=== PATIENT | female | born 1935 | race Caucasian/White ===

== ENCOUNTER 2023-01-29 16:07 | Inpatient (IN) | payer MEDICARE, OTHER ==
[~2023-01-29] VITALS: Ht 165.1 cm; Wt 65.0 kg
[2023-01-29 17:24] LABS: BASOPHILS % (AUTO) 0.2 % (0-1); EOSINOPHILS % (AUTO) 0 % (0-6); HEMATOCRIT 37.2 % (35.0-45.0); HEMOGLOBIN 12.7 g/dl (12.0-16.0); LYMPHOCYTES # (AUTO) 0.9 X10'3 (1.1-4.8); LYMPHOCYTES % (AUTO) 6.9 % (21-51); MEAN PLATELET VOLUME 8.8 FL (7.4-10.4); MONOCYTES # (AUTO) 1.2 X10'3 (0-0.9); MONOCYTES % (AUTO) 9.1 % (2-12); NEUTROPHILS # (AUTO) 10.8 X10'3 (1.8-7.7); NEUTROPHILS % (AUTO) 83.8 % (42-75); PLATELET COUNT 208 X10'3 (140-440); RED BLOOD COUNT 4.09 X10'6 (4.20-5.60); RED CELL DISTRIBUTION WIDTH 13.9 % (11.5-14.5); WHITE BLOOD COUNT 12.8 X10'3 (4.5-11.0)
[2023-01-29 17:37] LABS: ALANINE AMINOTRANSFERASE 22 U/L (12-78); ALBUMIN 3.3 G/DL (3.4-5.0); ALBUMIN/GLOBULIN RATIO 0.8 (1.1-1.5); ALKALINE PHOSPHATASE 76 IU/L (46-116); ANION GAP 10 (8-16); ASPARTATE AMINO TRANSFERASE 44 U/L (10-37); BILIRUBIN,TOTAL 1.2 MG/DL (0.1-1.0); BLOOD UREA NITROGEN 24 MG/DL (7-18); BUN/CREATININE RATIO 14.1 (10.0-20.0); CALCIUM 9.5 MG/DL (8.5-10.1); CHLORIDE 91 MMOL/L (99-107); GLUCOSE 124 MG/DL (70-104); LIPASE 14 U/L (16-77); POTASSIUM 3.4 MMOL/L (3.5-5.1); SODIUM 127 MMOL/L (135-145); TOTAL CARBON DIOXIDE 25.9 MMOL/L (24-32); TOTAL PROTEIN 7.3 G/DL (6.4-8.2); eCRCL 21 ML/MIN; eGFR 28 ML/MIN
[2023-01-29 18:22] LABS: PLATELET ESTIMATE NORMAL; TOTAL CELLS COUNTED 100
--- NOTE | 2023-01-29 18:25 | NUR ---
THIS RN CHARTED OFFICIAL ASSESSMENT FOR LEARNING PURPOSES WITH JULEE KRUGER ORIENTEE.
[2023-01-29] MEDS ORDERED: diazepam inj 5 MG/ML inj. IV STA (19:06)
[2023-01-29] MEDS ORDERED: aspirin 325mg tablet PO ONE (19:20)
--- NOTE | 2023-01-29 19:30 | NUR ---
PER PT DAUGHTER FRANCHESKA FARIAS PT HAS HEARING AID TO RIGHT EAR ONLY AND IT IS AT PT HOME/NOT ON PT.
--- NOTE | 2023-01-29 19:30 | NUR ---
THIS RN OBTAINED PT MEDICAL HISTORY WITH PT DAUGHTER FRANCHESKA FARIAS [phone]/APPROVED BY PT/CONTACT # GIVEN TO REGISTRATION NEXT OF KIN.
--- NOTE | 2023-01-29 19:30 | NUR ---
CHARGE INFORMED PT NEEDS HEP DRIP
[2023-01-29] MEDS ORDERED: ondansetron/PF 4mg/2ml inj IV PRN (20:00)
[2023-01-29] MEDS ORDERED: potassium Cl 40MEQ/1/2NS 520ml 520 ML IV PRN (20:00)
[2023-01-29] MEDS: K and/or MAG REPLACEMENT MC SCH (20:00)
[2023-01-29] MEDS ORDERED: potassium Cl 20 mEq SR tablet PO PRN (20:00)
[2023-01-29] MEDS ORDERED: magnesium Cl slow-release 64mg tablet PO PRN (20:00)
[2023-01-29] MEDS: docusate sod 100mg capsule PO SCH (20:00)
[2023-01-29] MEDS ORDERED: magnesium 2GM in 50ml NS 50 ML IV PRN (20:00)
[2023-01-29] MEDS ORDERED: acetaminophen 325mg tablet PO PRN (20:00)
[2023-01-29] MEDS ORDERED: mag hydrox/Alum hydrox/simeth 30ml oral suspension PO PRN (20:00)
[2023-01-29] MEDS ORDERED: magnesium hydroxide 30ml (MOM) UD suspension PO PRN (20:00)
[2023-01-29] MEDS ORDERED: PERFLUTREN PROTEIN-A MICROSPHR (Optison) 0.22 MG/ML 3ML VIAL IV ONE (20:00)
[2023-01-29] MEDS ORDERED: magnesium 4gm in 100ml NS 100 ML IV PRN (20:00)
[2023-01-29] MEDS ORDERED: heparin, porcine 5000 units/ml vial SQ SCH (20:00)
[2023-01-29] MEDS: potassium Cl 20 mEq SR tablet PO PRN (20:28)
[2023-01-29 20:33] LABS: APTT 31 SECONDS (22-32); PROTHROMBIN TIME 10.7 SECONDS (9.0-12.0)
[2023-01-29] MEDS: heparin 10,000 units/1 ML INJ IV PRN (21:52)
[2023-01-29] MEDS: heparin 25,000 UNIT/250ml bag 250 ML IV PRN (21:55)
--- NOTE | 2023-01-29 22:04 | NUR ---
MED "OPTISON" NOT GIVEN IN ER
--- NOTE | 2023-01-29 22:46 | NUR ---
PT PLACED ONTO IN-PATIENT BED
[2023-01-29 22:57] LABS: HEMOGLOBIN 9.5 g/dl (12.0-16.0); RED BLOOD COUNT 3.05 X10'6 (4.20-5.60); WHITE BLOOD COUNT 11.1 X10'3 (4.5-11.0)
[2023-01-29 22:58] LABS: BASOPHILS % (AUTO) 0.1 % (0-1); EOSINOPHILS % (AUTO) 0.1 % (0-6); HEMATOCRIT 27.8 % (35.0-45.0); MAGNESIUM 2.2 MG/DL (1.5-2.4); MEAN CORPUSCULAR HEMOGLOBIN 31.1 PG (27.0-31.0); MEAN CORPUSCULAR VOLUME 91.4 FL (78-98); MEAN PLATELET VOLUME 9.2 FL (7.4-10.4); MONOCYTES # (AUTO) 1.1 X10'3 (0-0.9); MONOCYTES % (AUTO) 9.9 % (2-12); NEUTROPHILS % (AUTO) 80.9 % (42-75); PLATELET COUNT 146 X10'3 (140-440); POTASSIUM 3.1 MMOL/L (3.5-5.1)
[2023-01-30 01:41] LABS: BILIRUBIN,URINE NEGATIVE (Neg); CLARITY,URINE CLOUDY (Clear); COLOR,URINE YELLOW (Yellow); GLUCOSE, URINE NEGATIVE (Neg); KETONES,URINE NEGATIVE (Neg); LEUKOCYTE ESTERASE ,URINE LARGE (Neg); NITRITES, URINE POSITIVE (Neg); OCCULT BLOOD,URINE MODERATE (Neg); PROTEIN,URINE 30 mg/dl (Neg); UROBILINOGEN,URINE 0.2 E.U/dL (0.2-1.0)
[2023-01-30 01:42] LABS: UA COLLECTION TYPE STRAIGHT CATH
[2023-01-30 01:51] LABS: BACTERIA,URINE 4+ /HPF (Neg); SQUAMOUS EPITHELIAL CELL,UR FEW /LPF (FEW); TRANSITIONAL EPI CELLS,URINE FEW /HPF; WBC,URINE TNTC /HPF (0-4)
[2023-01-30 01:53] LABS: MUCUS STRANDS MANY /LPF (Neg)
[2023-01-30 01:54] LABS: WBC CLUMPS,URINE MODERATE /HPF (NEGATIVE)
[2023-01-30 04:27] LABS: ALANINE AMINOTRANSFERASE 18 U/L (12-78); ALBUMIN 2.7 G/DL (3.4-5.0); ALBUMIN/GLOBULIN RATIO 0.9 (1.1-1.5); ALKALINE PHOSPHATASE 65 IU/L (46-116); ANION GAP 9 (8-16); ASPARTATE AMINO TRANSFERASE 35 U/L (10-37); BILIRUBIN,TOTAL 1.1 MG/DL (0.1-1.0); BLOOD UREA NITROGEN 26 MG/DL (7-18); BUN/CREATININE RATIO 16.1 (10.0-20.0); CALCIUM 8.8 MG/DL (8.5-10.1); CHLORIDE 93 MMOL/L (99-107); CREATININE 1.61 MG/DL (0.40-0.90); GLUCOSE 136 MG/DL (70-104); MAGNESIUM 2.1 MG/DL (1.5-2.4); POTASSIUM 3.1 MMOL/L (3.5-5.1); SODIUM 127 MMOL/L (135-145); TOTAL CARBON DIOXIDE 24.7 MMOL/L (24-32); TOTAL PROTEIN 5.8 G/DL (6.4-8.2); eCRCL 22 ML/MIN; eGFR 30 ML/MIN
[2023-01-30 04:46] LABS: APTT 124 SECONDS (22-32)
[2023-01-30] MEDS: CefTRIAXone/D5W-Rocephin 1gm 50 ML IV SCH (04:53)
--- NOTE | 2023-01-30 06:49 | NUR ---
ASSUMED PT CARE. PT RESTING IN NO APPARENT DISTRESS. HEPARIN DRIP IS PAUSED. AWAITING PTT RESULTS.
--- NOTE | 2023-01-30 06:55 | NUR ---
BLOOD DRAWN AND SENT TO LAB
--- NOTE | 2023-01-30 07:41 | NUR ---
lab called regarding PTT stat order. Blue top already drawn prior to order placed. Lab states they will run it.
--- NOTE | 2023-01-30 07:55 | NUR ---
PT C/O BACK PAIN AND UNABLE TO LAY STILL FOR THE ECHO. HOSPITALIST CALLED AND VERBAL ORDER FOR NORCO RECEIVED.
[2023-01-30] MEDS: docusate sod 100mg capsule PO SCH ×2 (08:00→19:16)
--- NOTE | 2023-01-30 08:28 | NUR ---
PT C/O OF BLADDER PAIN AND SPASMS, BLADDER SCAN STATES THERE IS 330ML IN BLADDER. PT IS UNABLE TO URINATE. HOSPITALIST CALLED TO INFORM.
[2023-01-30] MEDS: aspirin 81mg, enteric-coated 1 TAB TABLET.DR PO SCH (09:00)
[2023-01-30] MEDS: carVEDilol 3.125mg tablet PO SCH ×2 (09:00→19:13)
[2023-01-30] MEDS: diazepam 5mg tablet PO PRN ×2 (09:00→19:13)
[2023-01-30] MEDS: atorvastatin 10mg tablet PO SCH (09:00)
[2023-01-30] MEDS: normal saline 1000ml 1,000 ML IV SCH (09:00)
--- NOTE | 2023-01-30 09:30 | NUR ---
pt incontinent stool. pt cleaned and rachel initiated.
[2023-01-30 10:11] LABS: HEMOGLOBIN 12.3 g/dl (12.0-16.0); LYMPHOCYTES # (AUTO) 0.4 X10'3 (1.1-4.8); RED BLOOD COUNT 3.96 X10'6 (4.20-5.60); WHITE BLOOD COUNT 11.8 X10'3 (4.5-11.0)
[2023-01-30 10:22] LABS: APTT 32 SECONDS (22-32)
[2023-01-30 10:25] LABS: BASOPHILS # (AUTO) 0.1 X10'3 (0-0.2); BASOPHILS % (AUTO) 0.8 % (0-1); EOSINOPHILS % (AUTO) 0 % (0-6); HEMATOCRIT 36.3 % (35.0-45.0); LYMPHOCYTES % (AUTO) 3.8 % (21-51); MEAN CORPUSCULAR HEMOGLOBIN 31.2 PG (27.0-31.0); MEAN CORPUSCULAR VOLUME 91.6 FL (78-98); MEAN PLATELET VOLUME 9.1 FL (7.4-10.4); MONOCYTES # (AUTO) 0.7 X10'3 (0-0.9); MONOCYTES % (AUTO) 5.8 % (2-12); NEUTROPHILS # (AUTO) 10.6 X10'3 (1.8-7.7); NEUTROPHILS % (AUTO) 89.6 % (42-75); PLATELET COUNT 169 X10'3 (140-440); RED CELL DISTRIBUTION WIDTH 14.1 % (11.5-14.5)
[2023-01-30] MEDS: K and/or MAG REPLACEMENT MC SCH ×2 (10:40→20:00)
[2023-01-30] MEDS: potassium Cl 20 mEq SR tablet PO PRN ×2 (10:57→16:36)
[2023-01-30] MEDS: heparin 10,000 units/1 ML INJ IV PRN (10:59)
--- NOTE | 2023-01-30 12:19 | NUR ---
Notified hospitalist of cardiac rhythm, pt in and out of trigeminy per Kayla KRUGER.
[2023-01-30] MEDS: HYDROcodone/acetaminophen 5mg/325mg tablet PO PRN (14:36)
--- NOTE | 2023-01-30 15:05 | NUR ---
pt medicated with prn meds for 9/10 kidney pain. pt also has a fever. Hospitalist rachna.
--- NOTE | 2023-01-30 15:52 | NUR ---
PT RESTING, STATES HER PAIN HAS IMPROVED.
[2023-01-30] MEDS ORDERED: normal saline 500ml IV soln 500 ML IV ONE (16:30)
--- NOTE | 2023-01-30 16:47 | NUR ---
hospitalist informed of trending low bp's, verbal order for a 500 ml NS bolus received and started.
--- NOTE | 2023-01-30 17:14 | NUR ---
LAB AT BEDSIDE
[2023-01-30 17:26] LABS: BASOPHILS % (AUTO) 0.3 % (0-1); EOSINOPHILS % (AUTO) 0 % (0-6); HEMATOCRIT 31.1 % (35.0-45.0); HEMOGLOBIN 10.5 g/dl (12.0-16.0); LYMPHOCYTES # (AUTO) 0.9 X10'3 (1.1-4.8); LYMPHOCYTES % (AUTO) 7.2 % (21-51); MEAN CORPUSCULAR HEMOGLOBIN 30.8 PG (27.0-31.0); MEAN CORPUSCULAR HGB CONC 33.7 g/dL (33.0-36.5); MEAN CORPUSCULAR VOLUME 91.4 FL (78-98); MEAN PLATELET VOLUME 8.9 FL (7.4-10.4); MONOCYTES # (AUTO) 1.3 X10'3 (0-0.9); MONOCYTES % (AUTO) 10.7 % (2-12); NEUTROPHILS # (AUTO) 10.2 X10'3 (1.8-7.7); NEUTROPHILS % (AUTO) 81.8 % (42-75); PLATELET COUNT 160 X10'3 (140-440); RED CELL DISTRIBUTION WIDTH 13.8 % (11.5-14.5); WHITE BLOOD COUNT 12.5 X10'3 (4.5-11.0)
[2023-01-30] MEDS ORDERED: LISI1TAB53 PO (17:38)
[2023-01-30] MEDS ORDERED: MECL-226 PO (17:38)
[2023-01-30] MEDS ORDERED: LISI20TA28 PO (17:38)
[2023-01-30] MEDS ORDERED: DIAZ5TAB4 PO (17:38)
[2023-01-30] MEDS ORDERED: ACET-1008 PO (17:38)
[2023-01-30] MEDS ORDERED: MAGN400C PO (17:38)
[2023-01-30 17:45] LABS: ALANINE AMINOTRANSFERASE 17 U/L (12-78); ALBUMIN 2.3 G/DL (3.4-5.0); ALBUMIN/GLOBULIN RATIO 0.7 (1.1-1.5); ALKALINE PHOSPHATASE 60 IU/L (46-116); ANION GAP 8 (8-16); ASPARTATE AMINO TRANSFERASE 23 U/L (10-37); BILIRUBIN,TOTAL 0.7 MG/DL (0.1-1.0); BLOOD UREA NITROGEN 24 MG/DL (7-18); BUN/CREATININE RATIO 16.4 (10.0-20.0); CALCIUM 8.3 MG/DL (8.5-10.1); CHLORIDE 98 MMOL/L (99-107); CREATININE 1.46 MG/DL (0.40-0.90); GLUCOSE 120 MG/DL (70-104); POTASSIUM 3.5 MMOL/L (3.5-5.1); SODIUM 130 MMOL/L (135-145); TOTAL CARBON DIOXIDE 24.3 MMOL/L (24-32); TOTAL PROTEIN 5.6 G/DL (6.4-8.2); eCRCL 24 ML/MIN; eGFR 34 ML/MIN
--- NOTE | 2023-01-30 17:54 | NUR ---
lab called [id number], informed nurse Angelica
--- NOTE | 2023-01-30 21:57 | NUR ---
pt resting , sleeping no visual signs of discompfort nor distress. equal rise and fall of chest while breathing.
[2023-01-31] VITALS (14 sets, daily range): BP systolic 100–158; BP diastolic 45–84; PULSE 58–95; RESP 11–17; TEMP 97.5–98.1; O2SAT 92–96
--- NOTE | 2023-01-31 01:09 | NUR ---
0005 ptt =54 in range no med change needed
[2023-01-31] MEDS: HYDROcodone/acetaminophen 5mg/325mg tablet PO PRN ×3 (03:35→20:33)
[2023-01-31] MEDS: diazepam 5mg tablet PO PRN (03:35)
--- NOTE | 2023-01-31 04:35 | NUR ---
pt resting , sleeping no visual signs of discompfort nor distress. equal rise and fall of chest while breathing.
[2023-01-31] MEDS: normal saline 1000ml 1,000 ML IV SCH (04:37)
[2023-01-31] MEDS: K and/or MAG REPLACEMENT MC SCH ×2 (06:55→19:09)
--- NOTE | 2023-01-31 07:14 | NUR ---
Report called to SASKIA Waters on PCU
[2023-01-31 08:39] LABS: BASOPHILS % (AUTO) 0.2 % (0-1); EOSINOPHILS % (AUTO) 0.1 % (0-6); HEMATOCRIT 31.9 % (35.0-45.0); HEMOGLOBIN 10.7 g/dl (12.0-16.0); LYMPHOCYTES # (AUTO) 0.7 X10'3 (1.1-4.8); LYMPHOCYTES % (AUTO) 6.7 % (21-51); MEAN CORPUSCULAR HGB CONC 33.6 g/dL (33.0-36.5); MEAN CORPUSCULAR VOLUME 92.1 FL (78-98); MEAN PLATELET VOLUME 9.4 FL (7.4-10.4); MONOCYTES # (AUTO) 0.9 X10'3 (0-0.9); NEUTROPHILS # (AUTO) 8.6 X10'3 (1.8-7.7); PLATELET COUNT 170 X10'3 (140-440); RED BLOOD COUNT 3.46 X10'6 (4.20-5.60); RED CELL DISTRIBUTION WIDTH 14.1 % (11.5-14.5); WHITE BLOOD COUNT 10.2 X10'3 (4.5-11.0)
[2023-01-31 09:18] LABS: % IRON SATURATION 8 % (11-46); IRON 11 UG/DL (49-151); TOTAL IRON BINDING CAPACITY 146 UG/DL (259-388)
[2023-01-31 09:22] LABS: ALANINE AMINOTRANSFERASE 18 U/L (12-78); ALBUMIN 2.2 G/DL (3.4-5.0); ALBUMIN/GLOBULIN RATIO 0.6 (1.1-1.5); ALKALINE PHOSPHATASE 84 IU/L (46-116); ANION GAP 7 (8-16); ASPARTATE AMINO TRANSFERASE 21 U/L (10-37); BILIRUBIN,TOTAL 0.6 MG/DL (0.1-1.0); BLOOD UREA NITROGEN 26 MG/DL (7-18); BUN/CREATININE RATIO 19.7 (10.0-20.0); CALCIUM 8.2 MG/DL (8.5-10.1); CHLORIDE 99 MMOL/L (99-107); CREATININE 1.32 MG/DL (0.40-0.90); FERRITIN 321 NG/ML (8-252); GLUCOSE 98 MG/DL (70-104); MAGNESIUM 2.2 MG/DL (1.5-2.4); POTASSIUM 3.8 MMOL/L (3.5-5.1); SODIUM 131 MMOL/L (135-145); TOTAL CARBON DIOXIDE 24.8 MMOL/L (24-32); TOTAL PROTEIN 5.7 G/DL (6.4-8.2); eCRCL 27 ML/MIN; eGFR 38 ML/MIN
[2023-01-31] MEDS: atorvastatin 10mg tablet PO SCH ×2 (09:48→21:11)
[2023-01-31] MEDS: docusate sod 100mg capsule PO SCH ×2 (09:48→20:18)
[2023-01-31] MEDS: carVEDilol 3.125mg tablet PO SCH (09:48)
[2023-01-31] MEDS: aspirin 81mg, enteric-coated 1 TAB TABLET.DR PO SCH (09:48)
[2023-01-31] MEDS: CefTRIAXone/D5W-Rocephin 1gm 50 ML IV SCH (13:05)
[2023-01-31] MEDS: heparin 25,000 UNIT/250ml bag 250 ML IV PRN (13:15)
[2023-01-31] MEDS: heparin 10,000 units/1 ML INJ IV PRN (13:17)
[2023-01-31] MEDS: traMADol 50MG tablet PO PRN (14:39)
[2023-01-31] MEDS ORDERED: verapamil 2.5 mg/ml inj IV ONE (16:26)
[2023-01-31] MEDS ORDERED: fentaNYL/PF 50MCG/1 ML 2ML syringe ONE (16:26)
[2023-01-31] MEDS ORDERED: heparin 1,000unit/ml 10ml vial 10 ML ONE (16:26)
[2023-01-31] MEDS ORDERED: LIDOcaine 1% (10mg/ml) 2ml vial ONE (16:26)
[2023-01-31] MEDS ORDERED: midazolam 1 mg/ML 2ml injection ONE (16:26)
[2023-01-31] MEDS ORDERED: iohexol 350MG/ML 100ml bottle IV ONE ×2 (16:26→17:24)
[2023-01-31] MEDS ORDERED: iohexol 350 MG/ML 50ML vial IV ONE (16:26)
[2023-01-31] MEDS ORDERED: nitroGLYCERIN 500mcg/5mL D5W 5 ML IV ONE ×2 (16:29→17:18)
[2023-01-31] MEDS ORDERED: acetaminophen 325mg tablet PO PRN (18:55)
[2023-01-31] MEDS ORDERED: diazepam 5mg tablet PO PRN (18:55)
[2023-01-31] MEDS: sodium bicarbonate 1meq/ml inj 150 ML in dextrose 5%-water 1,000 ML IV SCH (18:58)
[2023-01-31] MEDS: carvedilol 6.25mg tablet PO SCH (20:19)
[2023-01-31] MEDS: acetylcysteine 200 MG/ml 4ml vial PO SCH ×2 (20:19→20:35)
[2023-01-31] MEDS: lisinopril 20mg tablet PO SCH (21:10)
[2023-01-31] MEDS: magnesium oxide 400mg tablet PO SCH (21:10)
--- NOTE | 2023-01-31 23:17 | NUR ---
MD Perez notified by telephone that patient had a blood pressure of 94/42 with a heart rate of 71 and was asymptomatic. No new orders.
[2023-02-01] VITALS (7 sets, daily range): BP systolic 100–135; BP diastolic 44–77; PULSE 67–79; RESP 11–16; TEMP 97.4–99.7; O2SAT 91–94
[2023-02-01] MEDS: normal saline 1000ml 1,000 ML IV SCH ×2 (00:12→14:31)
[2023-02-01 01:53] LABS: BASOPHILS % (AUTO) 0.2 % (0-1); EOSINOPHILS # (AUTO) 0.1 X10'3 (0-0.9); EOSINOPHILS % (AUTO) 0.8 % (0-6); HEMATOCRIT 28.3 % (35.0-45.0); HEMOGLOBIN 9.9 g/dl (12.0-16.0); LYMPHOCYTES # (AUTO) 1.1 X10'3 (1.1-4.8); MEAN CORPUSCULAR HEMOGLOBIN 31.6 PG (27.0-31.0); MEAN CORPUSCULAR VOLUME 90.2 FL (78-98); MONOCYTES # (AUTO) 1.2 X10'3 (0-0.9); NEUTROPHILS # (AUTO) 6.5 X10'3 (1.8-7.7); PLATELET COUNT 146 X10'3 (140-440); RED BLOOD COUNT 3.13 X10'6 (4.20-5.60); WHITE BLOOD COUNT 8.9 X10'3 (4.5-11.0)
[2023-02-01 02:09] LABS: ALANINE AMINOTRANSFERASE 10 U/L (12-78); ALBUMIN 1.9 G/DL (3.4-5.0); ALBUMIN/GLOBULIN RATIO 0.6 (1.1-1.5); ALKALINE PHOSPHATASE 57 IU/L (46-116); ANION GAP 5 (8-16); ASPARTATE AMINO TRANSFERASE 17 U/L (10-37); BILIRUBIN,TOTAL 0.4 MG/DL (0.1-1.0); BLOOD UREA NITROGEN 22 MG/DL (7-18); BUN/CREATININE RATIO 18.6 (10.0-20.0); CALCIUM 8.2 MG/DL (8.5-10.1); CHLORIDE 95 MMOL/L (99-107); CHOLESTEROL 120 MG/DL (0-200); CREATININE 1.18 MG/DL (0.40-0.90); GLUCOSE 134 MG/DL (70-104); HDL CHOLESTEROL 24 MG/DL (35-60); LDL CHOLESTEROL 70 MG/DL (50-100); POTASSIUM 3.5 MMOL/L (3.5-5.1); SODIUM 128 MMOL/L (135-145); TOTAL CARBON DIOXIDE 27.9 MMOL/L (24-32); TRIGLYCERIDES 115 MG/DL (20-135); eCRCL 30 ML/MIN; eGFR 43 ML/MIN
[2023-02-01 02:13] LABS: HEMOGLOBIN A1C 5.5 % (4.5-6.2)
[2023-02-01] MEDS: sodium bicarbonate 1meq/ml inj 150 ML in dextrose 5%-water 1,000 ML IV SCH (03:03)
[2023-02-01] MEDS: K and/or MAG REPLACEMENT MC SCH ×2 (07:06→20:00)
[2023-02-01] MEDS: HYDROchlorothiazide 25mg tablet PO SCH (07:18)
[2023-02-01] MEDS: aspirin 81mg, enteric-coated 1 TAB TABLET.DR PO SCH (07:18)
[2023-02-01] MEDS: docusate sod 100mg capsule PO SCH ×2 (07:18→22:15)
[2023-02-01] MEDS: carvedilol 6.25mg tablet PO SCH ×2 (07:18→22:15)
[2023-02-01] MEDS: lisinopril 20mg tablet PO SCH ×2 (07:20→22:19)
[2023-02-01] MEDS: CefTRIAXone/D5W-Rocephin 1gm 50 ML IV SCH (07:20)
[2023-02-01] MEDS: traMADol 50MG tablet PO PRN (07:20)
[2023-02-01] MEDS: acetylcysteine 200 MG/ml 4ml vial PO SCH (07:21)
--- NOTE | 2023-02-01 14:17 | NUR ---
Pt felt hot and sweaty then desated to 88-89. Was on 1.5L earlier sating at 98%. Now on $L sating 90 to 94%. Lungs sound more coarse than earlier. Dr. Santoro called and CXR ordered.
[2023-02-01] MEDS: heparin 25,000 UNIT/250ml bag 250 ML IV PRN (14:25)
[2023-02-01] MEDS: diazepam 5mg tablet PO PRN (14:33)
--- NOTE | 2023-02-01 16:53 | NUR ---
Malnutrition consult: Per RN malnutrition pt reports 2-13 pound wt loss and a decreased in PO intake/appetite. Pt in a deep sleep during visit accompanied by daughter at bedside. Pt's daughter states pt's UBW is 145 pounds and has been that weight for many years. Scaled wt this admit of 65kg (143 pounds) suggest possible 2 pound wt loss in 2 weeks; not significant for malnutrition. 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 Pt presents with mild weakness which is anticipated given advanced age and no edema at this time. Pt physically had mild temporal wasting though no other signs of wasting at this time. Pt lacks a minimum of two malnutrition criteria at this time. Will continue to monitor for signs of malnutrition. Addendum: 02/01/23 at [address] Amended: Links added.
[2023-02-01] MEDS: HYDROcodone/acetaminophen 5mg/325mg tablet PO PRN (17:33)
[2023-02-01] MEDS: magnesium oxide 400mg tablet PO SCH (22:15)
[2023-02-01] MEDS: atorvastatin 10mg tablet PO SCH (22:15)
--- NOTE | 2023-02-02 05:59 | NUR ---
I AGREE WITH THE ASSESSMENT OF THE PHYSICIAN CODER.
[2023-02-02 06:06] VITALS: BP 170/86; PULSE 74; RESP 12; TEMP 98; O2SAT 96
[2023-02-02 07:09] VITALS: RESP 12; O2SAT 96
[2023-02-02 08:49] LABS: BASOPHILS % (AUTO) 0.2 % (0-1); EOSINOPHILS # (AUTO) 0.1 X10'3 (0-0.9); EOSINOPHILS % (AUTO) 1.6 % (0-6); HEMATOCRIT 32.5 % (35.0-45.0); LYMPHOCYTES # (AUTO) 1.1 X10'3 (1.1-4.8); LYMPHOCYTES % (AUTO) 12.4 % (21-51); MEAN CORPUSCULAR HEMOGLOBIN 30.8 PG (27.0-31.0); MEAN CORPUSCULAR HGB CONC 33.8 g/dL (33.0-36.5); MEAN CORPUSCULAR VOLUME 91.1 FL (78-98); MONOCYTES # (AUTO) 1.2 X10'3 (0-0.9); MONOCYTES % (AUTO) 13.9 % (2-12); NEUTROPHILS # (AUTO) 6.1 X10'3 (1.8-7.7); NEUTROPHILS % (AUTO) 71.9 % (42-75); PLATELET COUNT 199 X10'3 (140-440); RED BLOOD COUNT 3.57 X10'6 (4.20-5.60); RED CELL DISTRIBUTION WIDTH 14.1 % (11.5-14.5); WHITE BLOOD COUNT 8.5 X10'3 (4.5-11.0)
[2023-02-02 09:13] LABS: ALANINE AMINOTRANSFERASE 22 U/L (12-78); ALBUMIN/GLOBULIN RATIO 0.6 (1.1-1.5); ALKALINE PHOSPHATASE 73 IU/L (46-116); ANION GAP 6 (8-16); ASPARTATE AMINO TRANSFERASE 42 U/L (10-37); BILIRUBIN,TOTAL 0.5 MG/DL (0.1-1.0); BLOOD UREA NITROGEN 14 MG/DL (7-18); BUN/CREATININE RATIO 12.3 (10.0-20.0); CALCIUM 8.6 MG/DL (8.5-10.1); CHLORIDE 96 MMOL/L (99-107); CREATININE 1.14 MG/DL (0.40-0.90); GLUCOSE 106 MG/DL (70-104); MAGNESIUM 2.1 MG/DL (1.5-2.4); POTASSIUM 3.3 MMOL/L (3.5-5.1); SODIUM 133 MMOL/L (135-145); TOTAL CARBON DIOXIDE 30.6 MMOL/L (24-32); TOTAL PROTEIN 5.5 G/DL (6.4-8.2); eCRCL 31 ML/MIN; eGFR 45 ML/MIN
[2023-02-02] MEDS: K and/or MAG REPLACEMENT MC SCH (09:16)
[2023-02-02] MEDS: lactose-reduced food (Ensure Enlive) - 237ml bottle PO SCH ×3 (09:28→13:00)
[2023-02-02] MEDS: CefTRIAXone/D5W-Rocephin 1gm 50 ML IV SCH (09:29)
[2023-02-02] MEDS: docusate sod 100mg capsule PO SCH (09:29)
[2023-02-02] MEDS: aspirin 81mg, enteric-coated 1 TAB TABLET.DR PO SCH (09:29)
[2023-02-02] MEDS: carvedilol 6.25mg tablet PO SCH (09:29)
[2023-02-02] MEDS: lisinopril 20mg tablet PO SCH (09:30)
[2023-02-02] MEDS: HYDROchlorothiazide 25mg tablet PO SCH (09:30)
[2023-02-02] MEDS ORDERED: CIPR750T14 PO (09:38)
[2023-02-02] MEDS ORDERED: ASPI-1071 PO (09:38)
[2023-02-02] MEDS ORDERED: ATOR10TA PO (09:38)
[2023-02-02] MEDS ORDERED: CARV6.253 PO (09:38)
[2023-02-02] MEDS: diazepam 5mg tablet PO PRN (10:35)
[2023-02-02 11:11] VITALS: BP 141/58; PULSE 65; RESP 12; TEMP 97.5; O2SAT 94
[2023-02-02] MEDS ORDERED: potassium Cl 20 mEq SR tablet PO PRN (12:30)
[2023-02-02 13:15] VITALS: RESP 16
[2023-02-02] MEDS: HYDROcodone/acetaminophen 5mg/325mg tablet PO PRN (13:15)
== END 2023-02-02 13:28 | disposition home health service (06) | DRG 280 ==
LOC: ER 16:08 → ED HOLD 20:03 → PCU 3S 01-31 07:23
PROVIDERS: ADMIT Internal Medicine; ATTEND Internal Medicine
PROC: 4A023N7 Measurement of Cardiac Sampling and Pressure, Left Heart, Percutaneous Approach (ICD-10-PCS; principal; 2023-01-31)
PROC: B2111ZZ Fluoroscopy of Multiple Coronary Arteries using Low Osmolar Contrast (ICD-10-PCS; 2023-01-31)
PROC: B2151ZZ Fluoroscopy of Left Heart using Low Osmolar Contrast (ICD-10-PCS; 2023-01-31)
DX: I21.4 Non-ST elevation (NSTEMI) myocardial infarction (principal); N17.0 Acute kidney failure with tubular necrosis; E87.1 Hypo-osmolality and hyponatremia; N39.0 Urinary tract infection, site not specified; N17.9 Acute kidney failure, unspecified; I25.10 Atherosclerotic heart disease of native coronary artery without angina pectoris; E87.6 Hypokalemia; Z66 Do not resuscitate; Z60.2 Problems related to living alone; I10 Essential (primary) hypertension; E78.5 Hyperlipidemia, unspecified; G47.30 Sleep apnea, unspecified; D72.829 Elevated white blood cell count, unspecified
CPT/HCPCS: 36415; 71045; 76937; 80053; 80061; 81001; 82607; 82728; 83036; 83540; 83550; 83690; 83735; 83880; 84132; 84484; 85007; 85025; 85610; 85730; 87077; 87081; 87088; 87186; 93005; 93306; 93458; 97116; 97161; 97530; 99152; 99153; 99285; A4314; A6258; A6449; C1758; C1894; G0378; J0696; J1644; J2250; J2405; J3010; J3360; J3490; J7030; J7040; J7070; Q9967